=== PATIENT | male | born 1995 | race Caucasian/White ===

== ENCOUNTER 2016-09-27 10:59 | Emergency (ER) | payer SELFPAY ==
[~2016-09-27] VITALS: Ht 165.1 cm; Wt 58.0 kg
[2016-09-27 11:08] VITALS: Ht 165.1 cm; Wt 58.0 kg
[2016-09-27] MEDS ORDERED: SOD CHLORIDE 0.9% 500 ML IV STA (11:26)
[2016-09-27 11:57] LABS: BASOPHILS % 0.3 % (0.0-2.0); EOSINOPHILS % 0.1 % (0.0-7.0); HEMATOCRIT 43.9 % (42.0-52.0); HEMOGLOBIN 15.1 g/dl (14.0-18.0); LYMPHOCYTES # 0.8 10^3/ul (0.8-2.9); LYMPHOCYTES % 4.9 % (15.0-51.0); MEAN CORPUSCULAR HEMOGLOBIN 31.4 pg (29.0-33.0); MEAN CORPUSCULAR HGB CONC 34.5 g/dl (32.0-37.0); MEAN CORPUSCULAR VOLUME 90.8 fl (82.0-101.0); MEAN PLATELET VOLUME 9.1 fl (7.4-10.4); MONOCYTE # 0.6 10^3/ul (0.3-0.9); MONOCYTES % 3.8 % (0.0-11.0); NEUTROPHIL # 14.6 10^3/ul (1.6-7.5); NEUTROPHILS % 90.9 % (39.0-77.0); PLATELET COUNT 252 10^3/UL (140-440); RED BLOOD COUNT 4.83 10^6/ul (4.70-6.10); RED CELL DISTRIBUTION WIDTH 13.7 % (11.5-14.5)
[2016-09-27 11:59] LABS: CONDITION 1; LH ANALYZER COMMENTS 1
[2016-09-27 12:11] LABS: ALBUMIN 4.6 g/dl (3.3-4.9); POTASSIUM 3.7 mmol/L (3.5-5.1)
[2016-09-27 12:13] LABS: CREATININE 0.57 mg/dl (0.61-1.24)
[2016-09-27 12:14] LABS: ALBUMIN/GLOBULIN RATIO 1.35; CALCIUM 8.4 mg/dl (8.4-10.2)
[2016-09-27 12:46] LABS: ADD UMIC YES; URINE BILIRUBIN (Dip) NEGATIVE (NEGATIVE); URINE BLOOD (Dip) 1+ (NEGATIVE); URINE COLOR LT. YELLOW (YELLOW); URINE KETONES (Dip) NEGATIVE (NEGATIVE); URINE LEUKOCYTE ESTERASE (Dip) NEGATIVE (NEGATIVE); URINE NITRITE (Dip) NEGATIVE (NEGATIVE); URINE TOTAL PROTEIN (Dip) 2+ (NEGATIVE); URINE UROBILINOGEN (Dip) 1.0 E.U./dL (0.1-1.0)
[2016-09-27] MEDS ORDERED: SOD CHLORIDE 0.9% 1,000 ML IV ONE (13:00)
[2016-09-27 13:26] LABS: URINE RBCS 0-2 /HPF (0)
--- NOTE | 2016-09-27 13:44 | ERA ---
ER Documentation Chief Complaint Date/Time DATE: 09/27/16 TIME: 13:42 Chief Complaint ETOH - ABDOMINAL PAIN HPI 21-year-old male presents to the emergency department complaining of abdominal pain. Patient states she has been drinking alcohol heavily and began having a nonspecific epigastric visceral type abdominal discomfort. Patient is a poor historian and appears to be somewhat intoxicated. Patient reports no melena or hematochezia. ROS All systems reviewed and are negative except as per history of present illness. Medications Home Meds No Active Prescriptions or Reported Meds Allergies Allergies: Coded Allergies: No Known Allergy (Unverified , 09/27/16) PMhx/Soc Medical and Surgical Hx: pt denies Medical Hx, pt denies Surgical Hx Hx Alcohol Use: Yes (DAILY) Hx Substance Use: No (DENIES) Hx Tobacco Use: No (DENIES) Smoking Status: Never smoker FmHx Noncontributory for chief complaint Physical Exam Vitals Vital Signs Date Time Temp Pulse Resp B/P Pulse Ox O2 Delivery O2 Flow Rate FiO2 09/27/16 11:08 98.0 117 19 176/87 97 Physical Exam GENERAL: The patient is well developed and appropriate for usual state of health in no apparent distress HEENT: Pupils equal, round, and reactive to light. EOMI. There is no scleral icterus. NECK: C-spine is soft and supple, there is no meningismus. There is no cervical lymphadenopathy. LUNGS: Clear to auscultation bilaterally. There are no rales, wheezes or rhonchi. HEART: Regular rate and rhythm, no murmurs, clicks, rubs or gallops. ABDOMEN: Soft, nondistended. Minimal discomfort throughout the abdomen with no peritoneal signs. EXTREMITIES: There is no peripheral cyanosis or edema. No focal swelling or erythema. NEURO: The patient moves all four extremities with 5/5 strength. Cranial nerves II - XII are intact. Normal gait. Alert and oriented SKIN: There is no apparent rash or petechiae. HEME/LYMPHATIC: There is no evidence of excessive bruising or lymphedema. PSYCHIATRIC: The patient does not appear anxious or depressed. Result Diagram: 09/27/16 1145 09/27/16 1145 Results 24 hrs Laboratory Tests Test 09/27/16 11:45 09/27/16 12:14 Alanine Aminotransferase (ALT/SGPT) 82IU/L Albumin 4.6g/dl Albumin/Globulin Ratio 1.35 Alkaline Phosphatase 147IU/L Anion Gap 25 Aspartate Amino Transf (AST/SGOT) 131IU/L Basophils # 0.010^3/ul Basophils % 0.3% Blood Urea Nitrogen 13mg/dl Calcium Level 8.4mg/dl Carbon Dioxide Level 21mmol/L Chloride Level 108mmol/L Creatinine 0.57mg/dl Direct Bilirubin 0.00mg/dl Eosinophils # 0.010^3/ul Eosinophils % 0.1% Ethyl Alcohol Level 241.0mg/dl Globulin 3.40g/dl Glucose Level 140mg/dl Hematocrit 43.9% Hemoglobin 15.1g/dl Indirect Bilirubin 0.0mg/dl Lymphocytes # 0.810^3/ul Lymphocytes % 4.9% Mean Corpuscular Hemoglobin 31.4pg Mean Corpuscular Hemoglobin Concent 34.5g/dl Mean Corpuscular Volume 90.8fl Mean Platelet Volume 9.1fl Monocytes # 0.610^3/ul Monocytes % 3.8% Neutrophils # 14.610^3/ul Neutrophils % 90.9% Nucleated Red Blood Cells # 0.010^3/ul Nucleated Red Blood Cells % 0.0/100WBC Platelet Count 10333^3/UL Potassium Level 3.7mmol/L Red Blood Count 4.8310^6/ul Red Cell Distribution Width 13.7% Sodium Level 150mmol/L Total Bilirubin 0.0mg/dl Total Protein 8.0g/dl White Blood Count 16.010^3/ul Lipase 7342U/L Urine Amorphous Phosphates FEW Urine Bilirubin NEGATIVE Urine Clarity CLEAR Urine Color LT. YELLOW Urine Glucose 0.1%% Urine Hemoglobin 1+ Urine Ketones NEGATIVE Urine Leukocyte Esterase NEGATIVE Urine Microscopic RBC 0-2/HPF Urine Microscopic WBC NONE SEEN/HPF Urine Nitrite NEGATIVE Urine Specific Roy >=1.030 Urine Total Protein 2+ Urine Urobilinogen 1.0 E.U./dL Urine pH 6.0 Current Medications Medications (Trade) Dose Ordered Sig/Ortiz Route PRN Reason Start Time Stop Time Status Last Admin Dose Admin Sodium Chloride 500 ml @ 500 mls/hr Q1H STAT IV 09/27/16 11:26 09/27/16 12:25 DC 09/27/16 11:48 Sodium Chloride (NS) 1,000 ml @ 1,000 mls/hr Q1H ONCE IV 09/27/16 13:00 09/27/16 13:59 Procedures/MDM Patient was taken to a room, seen and evaluated. Comfort measures were initiated. Diagnostic tests were ordered and reviewed. CONSULTATION: hospitalist was notified for admission REEVALUATION: Patient remained hemodynamically stable. MEDICAL DECISION MAKIN-year-old male presents to the emergency department with abdominal pain of uncertain etiology. Differential diagnosis considered includes appendicitis, diverticulitis, cholecystitis and other intra-abdominal medical and surgical concerns. I have reviewed the patients lab studies and imaging as well as multiple examinations of the abdomen. At this time, patient shows evidence of an alcohol induced pancreatitis. He is hypernatremic, dehydrated with an elevated white blood cell count indicating significant [place]'s criteria. He will require admission to the hospital for observation, monitoring, IV fluids and further pain control. Departure Diagnosis: Primary Impression: Alcoholic intoxication Additional Impression: Pancreatitis Condition: DILLON Baldwin Sep 27, 2016 13:44
== END 2016-09-27 13:56 | disposition left against medical advice (07) ==
LOC: E/R 10:59
DX: F10.129 Alcohol abuse with intoxication, unspecified (principal); K85.90 Acute pancreatitis without necrosis or infection, unspecified
CPT/HCPCS: 36415; 80053; 80306; 81001; 83690; 85025; 99284; J7030; J7040; 81003